=== PATIENT | male | born 1945 | race Caucasian/White ===

== ENCOUNTER 2021-01-23 13:54 | Emergency (ER) | payer MEDICARE ==
[~2021-01-23 13:54] MED LIST: AMARYL2 MG PO; CEFDINIR300 MG PO; FLOMAX 0.4 MG0.4 MG PO; JANUMET 50-5001 EACH PO; POLY-IRON150 MG PO; PROTONIX 40MG T40 MG PO
== END 2021-01-23 17:26 | disposition home or self-care (01) ==
LOC: FER 13:54
DX: G43.909 Migraine, unspecified, not intractable, without status migrainosus (principal); E11.9 Type 2 diabetes mellitus without complications
CPT/HCPCS: 70551